=== PATIENT | female | born 1970 | race Caucasian/White ===

== ENCOUNTER 2023-11-28 20:44 | Emergency (ER) | payer SELFPAY ==
[~2023-11-28] VITALS: Ht 162.6 cm; Wt 90.0 kg
[2023-11-28 20:46] VITALS: O2SAT 100
[2023-11-28] MEDS: HALOPERIDOL LACTATE 5MG/ML VIAL IM ONE (21:45)
[2023-11-28] MEDS: PANTOPRAZOLE SODIUM 40 MG/VIAL IV ONE (21:45)
[2023-11-28] MEDS: DIPHENHYDRAMINE 50MG/ML VIAL IV ONE (21:46)
[2023-11-28] MEDS: SODIUM CHLORIDE 0.9% 1,000 ML IV ONE (21:46)
[2023-11-28 22:25] LABS: BASOPHILS % 0.2 % (0.0-2.0); EOSINOPHILS % 0.3 % (0.0-5.0); HEMATOCRIT. 42.6 % (36.0-48.0); HEMOGLOBIN. 14.7 g/dL (12.0-16.0); LYMPHOCYTES % 13.8 % (20.0-50.0); MEAN CORPUSCULAR HEMOGLOBIN 30.8 pg (28.0-32.0); MEAN CORPUSCULAR HGB CONC 34.4 g/dL (31.0-37.0); MEAN CORPUSCULAR VOLUME 89.4 fL (81.0-99.0); MONOCYTES % 4.5 % (2.0-8.0); NEUTROPHILS % 81.2 % (40.0-76.0); PLATELET 317 x1000/uL (130-400); RED BLOOD CELL COUNT 4.77 mill/uL (4.2-5.4); RED CELL DISTRIBUTION WIDTH 13.3 % (11.6-14.6); WHITE BLOOD COUNT 13.3 x1000/uL (4.5-11.0)
[2023-11-28 22:33] LABS: CHLORIDE 99 mEq/L (98-107); POTASSIUM 3.8 mEq/L (3.5-5.1); SODIUM 135 mEq/L (136-145)
[2023-11-28 22:34] LABS: CALCIUM 10.2 mg/dL (8.7-10.4); CARBON DIOXIDE 25 mEq/L (21-32)
[2023-11-28 22:39] LABS: GLUCOSE 127 mg/dL (70-105); UREA NITROGEN BLOOD 20 mg/dL (9-23)
[2023-11-28 22:42] LABS: ETHANOL BLOOD < 10 mg/dL (<10)
[2023-11-28 23:54] VITALS: BP 147/71; PULSE 79; RESP 19; TEMP 97.9
== END 2023-11-29 | disposition home or self-care (01) ==
LOC: ER 20:44
DX: R11.2 Nausea with vomiting, unspecified (principal); R10.13 Epigastric pain; F41.9 Anxiety disorder, unspecified; I10 Essential (primary) hypertension
CPT/HCPCS: 80048; 80320; 83690; 85025; 36415; 96361; 96372; 96374; 96375; 99284; J1200; J1630; C9113; J7030; Z7610 ×5; G0480